=== PATIENT | male | born 1970 | race Caucasian/White ===

== ENCOUNTER 2018-10-20 21:38 | Emergency (ER) | payer SELFPAY ==
[2018-10-20] MEDS ORDERED: IBUPROFEN 600 MG TABLET ONE (22:42)
== END 2018-10-20 23:12 | disposition home or self-care (01) ==
LOC: EDH 21:38
DX: S60.221A Contusion of right hand, initial encounter (principal); Z87.891 Personal history of nicotine dependence; X58.XXXA Exposure to other specified factors, initial encounter; Y93.89 Activity, other specified; Y92.89 Other specified places as the place of occurrence of the external cause; Y99.8 Other external cause status
CPT/HCPCS: 73130

== ENCOUNTER 2020-01-15 15:57 | Emergency (ER) | payer OTHER, SELFPAY ==
[2020-01-15] MEDS ORDERED: ACETAMINOPHEN 325 MG TAB ONE (16:26)
[2020-01-15 16:33] LABS: BASOPHILS % (AUTO) 0.5 % (0.0-5.0); HEMATOCRIT 40.5 % (42-54); LYMPHOCYTES % (AUTO) 8.7 % (21.0-51.0); MEAN CORPUSCULAR HEMOGLOBIN 29.3 pg (27.0-33.0); MEAN CORPUSCULAR HGB CONC 33.8 g/dL (32.0-36.0); MEAN CORPUSCULAR VOLUME 86.7 fL (79-99); MONOCYTES % (AUTO) 7.8 % (3.0-13.0); NEUTROPHILS % (AUTO) 80.7 % (40.0-77.0); PLATELET COUNT (AUTO) 350 K/uL (130-400); RED BLOOD CELL COUNT(AUTO) 4.67 MIL/uL (4.50-6.20); RED CELL DISTRIBUTION WIDTH 12.7 % (11.0-15.5); WHITE BLOOD COUNT (AUTO) 15.7 K/uL (4.8-10.8)
[2020-01-15 16:42] LABS: POTASSIUM 3.9 mmol/L (3.5-5.1)
[2020-01-15 16:51] LABS: RAPID GROUP A STREP NEGATIVE (NEGATIVE)
[2020-01-15 16:56] LABS: APPEARANCE,URINE Clear (CLEAR); BILIRUBIN,URINE Negative (NEGATIVE); COLOR,URINE Dark Yellow (YELLOW); GLUCOSE, URINE (UA) Negative (NEGATIVE); KETONES,URINE Trace mg/dL (NEGATIVE); LEUKOCYTE ESTERASE ,URINE Trace (NEGATIVE); NITRATE,URINE Negative (NEGATIVE); OCCULT BLOOD,URINE Negative (NEGATIVE); PH,URINE 5.5 (5.0-8.0); PROTEIN,URINE Trace mg/dL (NEGATIVE)
[2020-01-15 17:02] LABS: AMPHET/METH SCREEN,URINE NEGATIVE (NEGATIVE); BARBITURATE SCREEN, URINE NEGATIVE (NEGATIVE); BENZODIAZEPINES SCREEN,URINE NEGATIVE (NEGATIVE); CANNABINOID SCREEN,URINE NEGATIVE (NEGATIVE); COCAINE SCREEN,URINE POSITIVE (NEGATIVE); OPIATE SCREEN,URINE NEGATIVE (NEGATIVE); PHENCYCLIDINE SCREEN,URINE NEGATIVE (NEGATIVE)
[2020-01-15 17:13] LABS: BACTERIA,URINE Few /HPF (None Seen); MUCUS,URINE Moderate LPF (None Seen); SQUAMOUS EPITHELIAL CELL,UR Few /HPF (0-2)
[2020-01-15 18:19] LABS: ALBUMIN 3.4 g/dL (3.5-5.0); BILIRUBIN,DIRECT 0.3 mg/dL (0.0-0.3); BILIRUBIN,TOTAL 0.8 mg/dL (0.2-1.0); TOTAL PROTEIN, SERUM 7.8 g/dL (6.0-8.3)
[2020-01-15] MEDS ORDERED: TRAMADOL HCL 50 MG TABLET ONE (19:58)
[2020-01-15] MEDS ORDERED: AZITHROMYCIN 250 MG TABLET PO ONE (19:58)
[2020-01-15] MEDS ORDERED: DICYCLOMINE HCL 10 MG/ML 2ML AMP IM ONE (20:14)
[2020-01-15 21:03] LABS: AMYLASE 40 U/L (25-115); LIPASE 123 U/L (114-286)
== END 2020-01-15 21:53 | disposition home or self-care (01) ==
LOC: EDH 15:57
DX: J12.89 Other viral pneumonia (principal); R09.1 Pleurisy; F14.10 Cocaine abuse, uncomplicated; Z20.828 Contact with and (suspected) exposure to other viral communicable diseases
CPT/HCPCS: 36415; 71045; 80048; 80076; 80305; 81001; 82150; 82550; 82728; 83690; 84145; 84484; 85025; 85378; 86140; 87486; 87581; 87633; 87798; 87804 ×2; 87880; 93005; 96372; 99285; J0500; U0003; 87635

== ENCOUNTER 2022-10-06 16:33 | Emergency (ER) | payer OTHER, SELFPAY ==
[~2022-10-06] VITALS: Ht 175.3 cm; Wt 81.6 kg
[2022-10-06 17:12] VITALS: BP 122/71
== END 2022-10-06 19:44 | disposition left against medical advice (07) ==
LOC: EDH 16:33
DX: M79.641 Pain in right hand (principal); Z53.21 Procedure and treatment not carried out due to patient leaving prior to being seen by health care provider
CPT/HCPCS: 73090; 73130